=== PATIENT | male | born 1940 | race African-American/Black ===

== ENCOUNTER 2021-09-07 13:28 | Inpatient (IN) | payer MEDICARE, SELFPAY ==
[2021-09-07] VITALS (29 sets, daily range): BP systolic 102–172; BP diastolic 60–86; PULSE 75–133; RESP 11–20; TEMP 36.1; O2SAT 94–100
--- NOTE | ~2021-09-07 | XR_ITS ---
EXAMINATION: XR chest 1V portable DATE: 09/07/2021 17:48 INDICATION: Syncope. TECHNIQUE: A single frontal view of the chest was obtained. COMPARISON: None. FINDINGS: The chest demonstrates clear lungs without pneumonia, pleural effusion, or pneumothorax. Th e heart size is normal. IMPRESSION: 1. No acute cardiopulmonary disease. Reviewed, dictated and finalized at location A. TAL MARKETS SPECIALIST
--- NOTE | ~2021-09-07 | US_ITS ---
EXAMINATION: US carotid duplex BI DATE: 09/08/2021 16:24 INDICATION: Syncope. TECHNIQUE: Grayscale, color Doppler, and pulsed Doppler images of the cervical carotid arteries were obtained. The degree of vessel stenosis is placed in one of the following categories: normal, <50%, 5 0-69%, >=70% but less than near-occlusion, near-occlusion, or total occlusion. Note that percent sten osis relative to normal distal artery lumen diameter is indirectly measured from velocity measurement s as described by Rm, et al. Radiology 2003; 229:340-346. COMPARISON: None. FINDINGS: RIGHT: The right common carotid artery (CCA) peak systolic velocity (PSV) is 68 cm/s. The right internal car otid artery (ICA) PSV is 78 cm/s. The right ICA end-diastolic velocity (EDV) is 7 cm/s. The right ICA /CCA PSV ratio is 1.2. Grayscale and color Doppler images yield an estimate of <50% diameter reductio n from plaque in the ICA. There is antegrade flow in the right vertebral artery. LEFT: The left CCA PSV is 69 cm/s. The left ICA PSV is 79 cm/s. The left ICA EDV is 15 cm/s. The left ICA/C CA PSV ratio is 1.1. Grayscale and color Doppler images yield an estimate of <50% diameter reduction from plaque in the ICA. There is antegrade flow in the left vertebral artery. IMPRESSION: 1. <50% stenosis in the right internal carotid artery. 2. <50% stenosis in the left internal carotid artery. Reviewed, dictated and finalized at location A. ANDRA CONSULTANT
--- NOTE | ~2021-09-07 | MR_ITS ---
EXAMINATION: MR brain/brain stem wo/w con DATE: 09/08/2021 16:34 INDICATION: Syncope. TECHNIQUE: Magnetic resonance imaging (MRI) of the brain and brainstem was performed without and with 17 mL MultiHance intravenous contrast. Sequences included sagittal and axial T1-weighted FSE, axial diffusion-weighted FS EPI, axial T2*-weighted GRE, axial T2-weighted FLAIR Propeller, and axial T2-we ighted Propeller. Postcontrast sequences included axial and coronal T1-weighted FSE. Apparent diffusi on coefficient (ADC) maps were created. COMPARISON: Head CT 09/07/2021 FINDINGS: There is diffuse brain volume loss. There is a small old infarct in the left parietal lobe. There are scattered areas of nonspecific increased T2-weighted signal intensity in the cerebral whit e matter and azeem. There is no intracranial hemorrhage, acute infarction, or abnormal intracranial ma ss lesion. The ventricles are normal in size. There is mild mucosal thickening in the paranasal sinus es. The orbits are normal. There is a small right mastoid effusion. IMPRESSION: 1. Mild nonspecific cerebral white matter disease and pontine disease, which likely represents chroni c small vessel ischemic disease. 2. Small old infarct in the left parietal lobe. Reviewed, dictated and finalized at location A. LAY DIRECTOR IMPRESSION: 1. Mild nonspecific cerebral white matter disease and pontine disease, which samir jackson represents chronic small vessel ischemic disease. 2. Small old infarct in the left parietal lobe.
--- NOTE | ~2021-09-07 | CT_ITS ---
EXAMINATION: CT brain wo con DATE: 09/07/2021 18:20 INDICATION: Syncope. TECHNIQUE: Computed tomography (CT) of the head was performed without intravenous contrast. The mA wa s adjusted according to patient size. Iterative reconstruction technique was employed. The dose-lengt h product was 605.33 mGy-cm. COMPARISON: None FINDINGS: There is a small old infarct in left parietal lobe. There is an old lacunar infarct in righ t caudate nucleus. There is an old lacunar infarct in the azeem. There are scattered areas of low atte nuation in the cerebral white matter. There is no intracranial hemorrhage, acute infarction, or abnor mal intracranial mass lesion. The ventricles are normal in size. The orbits are normal. There is mild mucosal thickening in the paranasal sinuses. There is a trace right mastoid effusion. IMPRESSION: 1. 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 2. Mild nonspecific cerebral white matter disease, which likely represents chronic small vessel ische marianne disease. Reviewed, dictated and finalized at location A. PATIONAL HEALTH COORDINATOR IMPRESSION: 1. 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 2. Mild nonspecific cerebral white matter disease, which likely represents shredder operator stanton small vessel ischemic disease.
--- NOTE | 2021-09-07 17:35 | ECG_ITS ---
Measurements Intervals [place] Rate: 97 P: 79 OH: 274 QRS: 15 QRSD: 84 T: 48 QT: 374 QTc: 477 Interpretive Statements SINUS RHYTHM WITH FIRST DEGREE AV BLOCK VENTRICULAR PREMATURE COMPLEX BASELINE ARTIFACT- I, II, III, AVR, AVL, AVF, V1-V6 ABNORMAL ECG Electronically Signed On 09-07-2021 19:16:42 SENIOR ENVIRONMENTAL ENGINEER by Marvin Waldron D.O.
--- NOTE | 2021-09-07 17:35 | ED.SYNCOPE ---
HPI - Syncope General Chief Complaint: Syncope Stated Complaint: syncope- a flutter Time Seen by Provider: 09/07/21 17:34 Course Vital Signs Vital signs: Vital Signs Temperature 36.1 C L 09/07/21 13:31 Pulse Rate 107 H 09/07/21 13:31 Respiratory Rate 20 09/07/21 13:31 Blood Pressure 133/75 09/07/21 13:31 Pulse Oximetry 100 09/07/21 13:31 Temperature 36.1 C L 09/07/21 13:31 Pulse Rate 107 H 09/07/21 13:31 Respiratory Rate 20 09/07/21 13:31 Blood Pressure 133/75 09/07/21 13:31 Pulse Oximetry 100 09/07/21 13:31
--- NOTE | 2021-09-07 17:45 | ED.SYNCOPE ---
HPI - Syncope General Chief Complaint: Syncope Stated Complaint: syncope- a flutter Time Seen by Provider: 09/07/21 17:34 Source: patient and family Mode of arrival: EMS Limitations: dementia History of Present Illness HPI narrative: Patient is an 81-year-old male brought in by EMS seizure versus syncope at home. According to daughter patient was sitting down when he suddenly became unresponsive and started shaking lasted for approximately 1 to 2 minutes. Denies any urinary or bowel incontinence. No history of seizures. Daughter states that patient was recently discharged from [facility] yesterday after being admitted for 4 days due to abdominal pain, they discharged him and they do not know what is causing his stomach pain . Patient denies any headache, dizziness, chest pain, shortness of breath, nausea, vomiting, diarrhea, fever or chills. Review of Systems Review of Systems: All systems reviewed & are unremarkable except as noted in HPI and below Constitutional: Constitutional: Denies body ache(s), Denies chills, Denies excessive sweating, Denies fatigue, Denies fever(s), Denies headache(s), Denies lethargy, Denies malaise and Denies weight loss Eyes: Eyes: Denies blurry vision, Denies change in vision and Denies loss of vision ENT: Denies dizziness, Denies ear discharge, Denies headache(s), Denies lip swelling, Denies epistaxis, Denies nasal congestion, Denies neck pain, Denies throat swelling and Denies tongue swelling Cardiovascular: Cardiovascular: Denies chest pain, Denies chest pain at rest, Denies chest pain with activity, Denies diaphoresis, Denies rapid heart rate, Denies edema, Denies irregular heart rhythm, Denies lightheadedness, Denies palpitations, Denies dyspnea and Denies dyspnea on exertion Respiratory: Respiratory: Denies chest congestion, Denies cough, Denies hemoptysis, Denies dyspnea and Denies dyspnea on exertion Gastrointestinal: Gastrointestinal: Denies abdominal pain, Denies melena, Denies hematochezia, Denies diarrhea, Denies nausea, Denies vomiting and Denies hematemesis Musculoskeletal: Musculoskeletal: Denies abnormal gait, Denies deformity, Denies joint swelling, Denies limited range of motion, Denies neck pain and Denies numbness Neurologic: Denies Abnormal speech present, Denies abnormal gait, Denies confusion, Denies dizziness, Denies headache(s), Denies focal weakness, Denies loss of vision, Denies numbness, Denies Other visual disturbances, Denies Sensory deficit (Neuro) and Denies weakness Psychiatric: Psychiatric: Denies confusion, Denies depression, Denies auditory hallucinations, Denies homicidal ideation and Denies suicidal ideation Endocrine: Endocrine: Denies cold intolerance, Denies excessive sweating, Denies fatigue, Denies heat intolerance and Denies palpitations Hematologic/Lymphatic: Hematologic/Lymphatic: Denies easy bleeding and Denies easy bruising Allergic/Immunologic: Allergic/Immunologic: Denies lip swelling, Denies throat swelling and Denies tongue swelling PMFSH Comments Past medical history: Hypertension, diabetes, dementia Family history: Hypertension diabetes Social history: Non-smoker no EtOH use, lives at home with a 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 caretaker Exam Const: General: cooperative, healthy appearing, comfortable, no acute distress, well developed, alert and awake Orientation/consciousness: oriented to person, oriented to place and No confusion Limitations: no limitations Other: Not oriented to time, this is his baseline per daughter HENMT: Head: normal to inspection, normocephalic and atraumatic Ears: hearing grossly normal bilaterally, TM normal on the right and TM normal on the left General nose exam: Normal external nose present, Normal nares present and No nasal discharge present Face and sinus: normal facial exam Mouth: Yes Normal oral and palatal mucosa present, Yes lip normal, Yes tongue normal and Yes oropharynx normal Throat: posterior oropharynx normal, tonsils normal and uvula midline
[2021-09-07] MEDS: SODIUM CHLORIDE 0.9% IV 1,000 ML 999 ML IV CONT (18:00)
[2021-09-07 18:07] LABS: Basophils Absolute Auto 0.1 K/mm3 (0.0-0.1); Basophils Percent Auto 0.8 % (0.2-1.2); Eosinophils Absolute Auto 0.1 K/mm3 (0-0.3); Hematocrit 31.9 % (42.0-52.0); Hemoglobin 10.8 g/dL (14.0-18.0); Immature Granulocyte Absolute 0.07 K/mm3 (0.00-0.031); Immature Granulocyte Percent A 0.6 % (0-0.5); Lymphocytes Absolute Auto 2.51 K/mm3 (0.9-3.2); Lymphocytes Percent Auto 21.9 % (18.3-44.2); Mean Corpuscular HGB Conc 33.9 g/dl (32-36); Mean Corpuscular Hemoglobin 31.8 pg (26-34); Mean Corpuscular Volume 93.8 fl (80-100); Mean Platelet Volume 10.4 fl (7.4-10.4); Monocytes Absolute Auto 1.5 K/mm3 (0.1-0.6); Monocytes Percent Auto 12.9 % (2.6-8.5); Neutrophils Absolute Auto 7.2 K/mm3 (1.3-6.7); Neutrophils Percent Auto 62.8 % (45.5-73.1); Platelet Count Result 265 k/mm3 (150-375); Red Cell Distribution Width 13.5 % (11.5-14.5); White Blood Count 11.5 K/mm3 (4.5-10.0)
[2021-09-07 18:16] LABS: INR 1.1; Prothrombin Time 13.6 Seconds (11.1-14.7)
--- NOTE | 2021-09-07 18:16 | PC.NURSE ---
pt. to ct no ekg or accu check completed
[2021-09-07 18:17] LABS: Anion Gap 8 mmol/L (8-16); Blood Urea Nitrogen 23 mg/dL (9-20); Calcium 9.9 mg/dL (8.4-10.2); Carbon Dioxide 26 mmol/L (22-30); Chloride 101 mmol/L (98-107); Estimated CRCL calculation 52 ml/min; Estimated Glomerular Filt Rate > 60; Glucose 224 mg/dL (65-110); Partial Thromboplastin Time 22.8 SECONDS (22.3-36.8); Potassium 3.6 mmol/L (3.4-5.0); Sodium 135 mmol/L (137-145)
[2021-09-07 18:24] LABS: Glucose Point of Care 199 mg/dl (65-105)
[2021-09-07 18:29] LABS: NT Pro B Type Natriuretic Pept 666 pg/mL (5-100); Troponin I 0.034 ng/mL (0.000-0.034)
--- NOTE | 2021-09-07 18:49 | PC.NURSE ---
pt. asked x3 to urinate. pt. reports he cannot go.
[2021-09-07] MEDS: levETIRAcetam 500 MG TABLET PO (20:25)
--- NOTE | 2021-09-07 22:34 | PM.IMHP ---
H&P: HPI History of Present Illness Date/Time: 09/07/21 22:34 this is a 81-year-old male patient who is a very poor historian. He tells me that he lives with his family. The patient was brought into the ER via EMS for possible seizure versus syncope at home. According to the reports the patient was sitting down when he suddenly became unresponsive and started shaking for approximately 1-2 minutes. Patient denied any incontinence of bowel or bladder. However when I assessed the patient his pants smelled of urine and were wet. Patient was at [facility] and just discharged yesterday after being there for 4 days due to abdominal pain. No fever chills. Neurology has been consulted and the patient was given IV fluids and Keppra p.o.. His white count was 11.5. H&H is 10.8 and 31.9. Sodium was 135. Blood sugar was 199 and his BNP was 666. 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 Mild nonspecific cerebral white matter disease, which likely represents chronic small vessel ischemic disease. Chest x-ray was read as no acute cardiopulmonary disease. The patient is being admitted to observation status on the date of service of 09/07/2021. Chief Complaint: Possible seizure Review of Systems Review of Systems: All systems reviewed & are unremarkable except as noted in HPI and below Constitutional: Constitutional: Reports as per HPI and Reports no additional constitutional complaints Eyes: Eyes: Reports as per HPI and Reports no additional eye complaints ENT: Reports system reviewed and no additional complaints, except as documented and Reports Normal hearing present Cardiovascular: Cardiovascular: Reports no additional cardiovascular complaints Respiratory: Respiratory: Reports no additional respiratory complaints and Reports no additional respiratory complaints Gastrointestinal: Gastrointestinal: Reports as per HPI and Reports no additional gastrointestinal complaints Musculoskeletal: Musculoskeletal: Reports no additional musculoskeletal complaints Integumentary/Breasts: Skin/Breast: Reports system reviewed and no additional complaints, except as docu and Reports as per HPI Neurologic: Reports system reviewed and no additional complaints, except as documented, Reports as per HPI and Reports Normal hearing present Psychiatric: Psychiatric: Reports no additional psychiatric complaints and Reports as per HPI Endocrine: Endocrine: Reports no additional endocrine complaints Hematologic/Lymphatic: Hematologic/Lymphatic: Reports no additional hematologic/lymphatic complaints Allergic/Immunologic: Allergic/Immunologic: Reports no additional allergic/immunologic complaints COUNTS INCLUDE 234 BEDS AT THE [facility] Past Medical History Medical History (Updated 09/07/21 @ 23:17 by Diana Ulloa NP) BPH (benign prostatic hyperplasia) DM2 (diabetes mellitus, type 2) Hyperlipidemia Hypertension Surgical History Surgical History (Updated 09/07/21 @ 22:48 by Diana Ulloa NP) No pertinent past surgical history As per patient Family History Family History (Updated 09/07/21 @ 22:49 by Diana Ulloa NP) Unknown Unknown family medical history Social History Social History (Updated 09/07/21 @ 22:53 by Diana Ulloa NP) Social History: The patient is . He stated that he lives with family. Two daughters were listed in his contacts. The patient is listed as a full code. The patient stated that he smoked a long time ago. He stated that he worked for [employer]. He stated he drank a long time ago. Code status full code Smoking status: Former smoker Meds Home Medications and Allergies Home Medications Medication Instructions Recorded Confirmed Type amlodipine 10 mg PO DAILY 09/07/21 09/07/21 History atorvastatin 20 mg PO DAILY 09/07/21 09/07/21 History docusate sodium 100 mg PO DAILY 09/07/21 09/07/21 History insulin glargine [Lantus Solostar 25 unit SUBCUT DAILY 1
[2021-09-07 23:25] LABS: Add Urine Microscopic? YES; Appearance Urine Cloudy (Clear); Bacteria Urine Trace /hpf; Bilirubin Urine Negative (Negative); Blood Urine 3+ (Negative); Color Urine Yellow (Yellow); Glucose Urine UA Negative (Negative); Ketones Urine Negative (Negative); Leukocyte Esterase Ur Negative LEU/UL (Negative); Nitrate Urine Negative (Negative); Protein Urine Negative (Negative); RBC Urine >75 /hpf (0-2); Specific Grav Ur 1.011 (1.001-1.035); Urobilinogen Urine Negative mg/dL (<2.0); WBC Urine 0-3 /hpf
[2021-09-08] VITALS (14 sets, daily range): BP systolic 151–165; BP diastolic 66–74; PULSE 73–101; RESP 11–20; TEMP 36.6–37; O2SAT 97–100; BMI 25.7
--- NOTE | 2021-09-08 | ECHO_ITS ---
Patient Info Name: Van Brower Age: 81 years : 1940 Gender: Male Ht: 73 in Wt: 179 lbs BSA: 2.05 m2 HR: 87 bpm BP: 161 / 71 mmHg Technical Quality: Good Exam Date: 09/08/2021 10:28 AM Exam Location: [facility] Patient Status: Inpatient Admit Date: 09/07/2021 Staff Ordering Physician: Diana Ulloa NP Egg Trayer: Delia Vinson RDCS Attending Provider: Antoinette Hope NP Referring Physician: Laila VENEGAS; Exam Type: CA echo doppler color flow Study Info Indications - ELEVATED BNP Complete two-dimensional, color flow and Doppler transthoracic echocardiogram is performed. Summary 1. Complete two-dimensional, color flow and Doppler transthoracic echocardiogram is performed. 2. Left ventricular chamber dimension is normal. 3. Left ventricular systolic function is normal, estimated at 60-65%. 4. The left ventricular diastolic function is grade I diastolic dysfunction. 5. E/e' 8 is minimally elevated. 6. Global longitudinal strain is normal at -17.6%. 7. There is mild mitral valve regurgitation. 8. There is trace tricuspid valve regurgitation. 9. No pulmonary hypertension, estimated pulmonary arterial systolic pressure is 33 mmHg. Left Ventricle E/e' 8 is minimally elevated. Global longitudinal strain is normal at -17.6%. Left ventricular chamber dimension is normal. Left ventricular systolic function is normal, estimated at 60-65%. The left ventricular diastolic function is grade I diastolic dysfunction. Right Ventricle Right ventricular chamber dimension is normal. Right ventricular systolic function is normal. Left Atria Left atrial chamber dimension is normal. Right Atria Right atrial chamber dimension is normal. Aortic Valve The aortic valve is trileaflet. There is no aortic valve stenosis. There is no aortic valve regurgitation. Pulmonic Valve There is no pulmonic regurgitation. Mitral Valve There is no mitral valve stenosis. There is mild mitral valve regurgitation. Tricuspid Valve There is trace tricuspid valve regurgitation. No pulmonary hypertension, estimated pulmonary arterial systolic pressure is 33 mmHg. Pericardium/Pleural There is no pericardial effusion. Inferior Vena Cava Normal inferior vena cava with >50% collapse upon inspiration consistent with normal right atrial pressure, 5 mmHg. Aorta The aortic root size at the sinus of Valsalva is normal. Left Ventricular Outflow Tract Name Value Normal LVOT 2D LVOT Diameter 2.0 cm LVOT Doppler LVOT Peak Gradient 4 mmHg LVOT Mean Gradient 2 mmHg LVOT VTI 22 cm LVOT VTI/AV VTI Ratio 1.0 LVOT Stroke Volume 69 ml LVOT CO 5.8 l/min LVOT CI 2.8 l/min/m2 Pulmonic Valve Name Value Normal
--- NOTE | 2021-09-08 00:55 | ADMGEN ---
This patient, Van Brower, was admitted to [facility] Surg Room 306-01. Patient/family oriented to hospital policies and general routines including ID bracelet, bed and alarms, visiting hours, pain management, procedures, bathroom and other care routines, personal items, smoking policy, room service/diet, and visiting hours. Information on how to activate the Rapid Response Team has been discussed. Patient/Family are encouraged to report perceived risks to care and to ask questions if they do not understand what they are told or what they should do.
[2021-09-08 02:53] LABS: Glucose Point of Care 148 mg/dl (65-105)
[2021-09-08] MEDS: LACTATED RINGERS 1,000 ML 100 ML IV CONT ×3 (06:11→22:33)
[2021-09-08 07:01] LABS: Glucose Point of Care 136 mg/dl (65-105)
[2021-09-08 07:26] LABS: Basophils Absolute Auto 0.1 K/mm3 (0.0-0.1); Eosinophils Absolute Auto 0.2 K/mm3 (0-0.3); Eosinophils Percent Auto 2.4 % (0-4.4); Hematocrit 27.4 % (42.0-52.0); Hemoglobin 9.2 g/dL (14.0-18.0); Immature Granulocyte Absolute 0.03 K/mm3 (0.00-0.031); Immature Granulocyte Percent A 0.4 % (0-0.5); Lymphocytes Absolute Auto 2.02 K/mm3 (0.9-3.2); Mean Corpuscular HGB Conc 33.6 g/dl (32-36); Mean Corpuscular Hemoglobin 31.5 pg (26-34); Mean Corpuscular Volume 93.8 fl (80-100); Mean Platelet Volume 9.9 fl (7.4-10.4); Monocytes Percent Auto 13.5 % (2.6-8.5); Neutrophils Percent Auto 54.7 % (45.5-73.1); Platelet Count Result 290 k/mm3 (150-375); Red Blood Count 2.92 M/mm3 (4.6-6.20); Red Cell Distribution Width 13.5 % (11.5-14.5); White Blood Count 7.2 K/mm3 (4.5-10.0)
[2021-09-08 07:46] LABS: Lactic Acid Reflex 0.8 mmol/L (0.7-2.1)
[2021-09-08 08:16] LABS: Alanine Aminotransferase 73 U/L (4-50); Albumin Level 3.7 g/dL (3.5-5.1); Alkaline Phosphatase 87 U/L (38-126); Anion Gap 7 mmol/L (8-16); Aspartate Amino Transferase 63 U/L (17-59); Bilirubin,Total 0.5 mg/dL (0.2-1.3); Blood Urea Nitrogen 15 mg/dL (9-20); Calcium 8.9 mg/dL (8.4-10.2); Carbon Dioxide 25 mmol/L (22-30); Chloride 104 mmol/L (98-107); Estimated CRCL calculation 70 ml/min; Estimated Glomerular Filt Rate > 60; Glucose 155 mg/dL (65-110); Lactate Dehydrogenase 365 U/L (313-618); Magnesium 1.4 mg/dL (1.6-2.3); Potassium 3.2 mmol/L (3.4-5.0); Sodium 136 mmol/L (137-145)
[2021-09-08] MEDS: levETIRAcetam 500MG/NACL 100ML 500 MG/100 ML BAG 400 MG IVPB ×2 (08:35→22:33)
--- NOTE | 2021-09-08 09:25 | PM.IMPN ---
Progress Note: A&P Assessment and Plan (1) New onset seizure: Code(s): R56.9 - Unspecified convulsions Status: Acute Assessment and Plan: Neurology has been consulted. patient was started on p.o. Keppra which I will change to IV Keppra since he is now NPO. An EEG has been ordered. MRI of the brain has been ordered. echo done and results WNL & noted above NPO for testing (2) Anemia: Code(s): D64.9 - Anemia, unspecified Status: Acute Assessment and Plan: Unknown if it is chronic or new. H/H = 10.8/31.9 at admission Patient was recently at [facility] discharged 09/06. We will attempt to get records from [facility]. H/H 9.2/27.4 today. No IVFs. (3) Hypertension: Code(s): I10 - Essential (primary) hypertension Status: Chronic Assessment and Plan: Since the patient is NPO , continue p.r.n. hydralazine BNP elevated at 666, but no s/s of CHF. ECHO results wnl. Ordered daily weights and strict I/Os. No edema, no SOB, no wheezing, CXR on 09/07 showed chest demonstrates clear lungs without pneumonia, pleural effusion, or pneumothorax. The heart size is normal. No acute cardiopulmonary disease. Monitor VS. (4) Hyperlipidemia: Code(s): E78.5 - Hyperlipidemia, unspecified Status: Chronic Assessment and Plan: Continue with atorvastatin (5) DM2 (diabetes mellitus, type 2): Code(s): E11.9 - Type 2 diabetes mellitus without complications Status: Chronic Assessment and Plan: Accu-Cheks every 6 hours and check A1c. Sliding scale insulin. Hold the Lantus and metformin glucose levels today are 173, 136 (6) BPH (benign prostatic hyperplasia): Code(s): N40.0 - Benign prostatic hyperplasia without lower urinary tract symptoms Status: Chronic Assessment and Plan: Continue with tamsulosin. (7) Tachycardia: Code(s): R00.0 - Tachycardia, unspecified Status: Acute Assessment and Plan: HR 83-98 on vital signs, then up to 160-180 with PT session ordered IVFs 100ml.hr to continue ordered 4 gm Mag IV now with daily 400mg PO to continue EKG for now no chest pain or SOB complaints continue Cardiac Telemetry monitoring Subjective Date/time seen: 09/08/21 09:25 Van was a pleasant gentleman to see today. His grand-daughter was present at his bedside. He was alert and oriented at times. Thought she was a niece but then corrected himself and did get her name correct. Knew it was 2020, but thought it was August. His right arm seemed to be contracted at times, involuntarily, and he also complained to the nursing staff that his legs were having some cramping in them as well. Nursing staff is currently working on replacing his IV, so I have ordered PO magnesium to replace the low 1.4 mag level. Appreciate Neurologist Dr. Holder's consultation and recommendations - as he was consulted. Awaiting the MRI brain, EEG results, and US carotid results. Continue Qshift neurochecks and fall precautions. His echo showed: Left ventricular chamber dimension is normal.EF 60-65%. left ventricular diastolic function is grade I diastolic dysfunction.mild mitral valve regurgitation.trace tricuspid valve regurgitation.No pulmonary hypertension, estimated pulmonary arterial systolic pressure is 33 mmHg.no aortic valve stenosis.no aortic valve regurgitation. no pulmonic regurgitation. no mitral valve stenosis.mild mitral valve regurgitation.trace tricuspid valve regurgitation. no pericardial effusion. Review of Systems Review of Systems: All systems reviewed & are unremarkable except as noted in HPI and below Constitutional: Constitutional: Reports as per HPI, Reports no additional constitutional complaints, Denies headache(s), Reports lethargy and Reports weakness Eyes: Eyes: Reports as per HPI, Reports no additional eye complaints, Denies blurry vision, Denies change in vision, Denies loss of vision and Reports photopho
--- NOTE | 2021-09-08 09:26 | WPDNEURCNPN ---
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 in addition to history of seizure and so continue anticonvulsants in therapeutic dosage and follow-up in the office once medically he is taken care Consult date: 09/08/21 HPI: Van Brower is a 81 year old maleAdmitted to the hospital through the emergency room where he was brought by EMS with the possibility of seizure versus syncope at home reportedly he was sitting down when he suddenly became unresponsive and started shaking for approximately 1 to 2 minutes he did not become incontinent of bowel or bladder but at the time of initial evaluation he smelled of urine patient initially was [facility] and just discharged yesterday after being there for 4 days due to abdominal pain initial evaluation revealed him to have CBC was 11.5 WBCs hemoglobin 10.8 and a blood sugar of 199 with BNP of [address] scan of the head documented 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 BPH 2. Type 2 diabetes mellitus 3. Hypertension 4. Hyperlipidemia. In the emergency room after the initial consultation he was started on Keppra, medication were continued as such. Review of Systems Review of Systems: All systems reviewed & are unremarkable except as noted in HPI and below PMFSH Past Medical History Medical History BPH (benign prostatic hyperplasia) DM2 (diabetes mellitus, type 2) Hyperlipidemia Hypertension Surgical History Surgical History No pertinent past surgical history As per patient Family History Family History Unknown Unknown family medical history Social History Social History Social History: The patient is . He stated that he lives with family. Two daughters were listed in his contacts. The patient is listed as a full code. The patient stated that he smoked a long time ago. He stated that he worked for [employer] [place]. He stated he drank a long time ago. Code status full code Smoking status: Unknown if ever smoked Spiritual care concerns: No Meds Home Medications and Allergies Home Medications Medication Instructions Recorded Confirmed Type amlodipine 10 mg PO DAILY 09/07/21 09/07/21 History atorvastatin 20 mg PO DAILY 09/07/21 09/07/21 History docusate sodium 100 mg PO DAILY 09/07/21 09/07/21 History insulin glargine [Lantus Solostar 25 unit SUBCUT DAILY 09/07/21 09/07/21 History U-100 Insulin] lisinopril 40 mg PO DAILY 09/07/21 09/07/21 History metformin 500 mg PO BID 09/07/21 09/07/21 History metoprolol tartrate 50 mg PO BID 09/07/21 09/07/21 History polyethylene glycol 3350 17 g PO DAILY PRN 09/07/21 09/07/21 History sitagliptin [Januvia] 100 mg PO DAILY 09/07/21 09/07/21 History tamsulosin 0.4 mg PO DAILY 09/07/21 09/07/21 History Allergies Allergy/AdvReac Type Severity Reaction Status Date / Time No Known Allergies Allergy Verified 09/07/21 20:08 Vital Signs Vital Signs - 24 hr 09/07/21 13:31 09/07/21 18:46 09/07/21 18:48 Temperature 36.1 C L Pulse Rate 107 H 97 93 Respiratory Rate 20 Blood Pressure 133/75 158/70 H Pulse Oximetry 100 09/07/21 18:49 09/07/21 18:51 09/07/21 20:05 Temperature Pulse Rate 88 133 H 86 Respiratory Rate 15 Blood Pressure 144/66 H 102/60 170/74 H Pulse Oximetry 100 09/07/21 20:15 09/07/21 20:16 09/07/21 20:30 Temperature Pulse Rate 79 75 79 Respiratory Rate 15 15 15 Blood Pressure 152/71 H 152/71 H Pulse Oximetry 100 100 09/07/21 20:46 09/07/21 20:47 09/07/21 21:12 Temperature P
[2021-09-08 12:12] LABS: Hemoglobin A1C 5.7 % (<5.7)
[2021-09-08 12:16] LABS: Glucose Point of Care 173 mg/dl (65-105)
--- NOTE | 2021-09-08 14:26 | ECG_ITS ---
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
[2021-09-08] MEDS: MAGNESIUM SULF 4 GM/WATER100ML 4 GM/100 ML BAG IVPB (14:57)
[2021-09-08] MEDS: MAGNESIUM OXIDE 400 MG TABLET PO (14:58)
[2021-09-08] MEDS: POTASSIUM CHLORIDE 20 MEQ PACKET (FOR LIQUID) 40 MEQ PO (17:13)
[2021-09-08 17:26] LABS: Glucose Point of Care 152 mg/dl (65-105)
[2021-09-08 17:34] LABS: Glucose Point of Care 152 mg/dl (65-105)
[2021-09-09] VITALS (9 sets, daily range): BP systolic 122–162; BP diastolic 64–77; PULSE 89–155; RESP 18–20; TEMP 36.2–37.2; O2SAT 98–100
[2021-09-09 03:30] LABS: Glucose Point of Care 132 mg/dl (65-105)
[2021-09-09 04:54] LABS: Glucose Point of Care 154 mg/dl (65-105)
[2021-09-09] MEDS: METOPROLOL TARTRATE INJ 5 MG/5 ML VIAL IV PUSH (05:04)
--- NOTE | 2021-09-09 05:33 | P.PNCROSS_ITS ---
Event Note Event Note Event Note: 09/09/2021 around 04:40 The patient fluid from sinus rhythm to AFib RVR on telemetry. Nursing staff called to notify me the patient's heart rates were 170s. Systolic blood pressures were remaining around 120. The patient is evidently NPO due to altered mental status and seizure. The patient has subsequent not been receiving his metoprolol. He was recently diagnosed with AFib during a prior hospitalization at [place]. The patient subsequently went into AFib RVR due to missed doses of his metoprolol. A given or for 5 mg IV Lopressor x1. Approximately 20 minutes later patient's heart rate had improved to between 90- 110. Patient's blood pressures were stable. I have placed the patient on IV Lopressor 5 mg Q 6 hours scheduled while NPO. Will hold for heart rates less than 50 or systolic blood pressures less than 100. Repeat potassium and magnesium levels are already ordered for a.m. labs.
[2021-09-09 06:26] LABS: Hematocrit 27.6 % (42.0-52.0); Hemoglobin 9.6 g/dL (14.0-18.0); Mean Corpuscular HGB Conc 34.8 g/dl (32-36); Mean Corpuscular Hemoglobin 31.1 pg (26-34); Mean Corpuscular Volume 89.3 fl (80-100); Mean Platelet Volume 9.7 fl (7.4-10.4); Platelet Count Result 320 k/mm3 (150-375); Red Blood Count 3.09 M/mm3 (4.6-6.20); Red Cell Distribution Width 12.9 % (11.5-14.5); White Blood Count 7.2 K/mm3 (4.5-10.0)
[2021-09-09 06:38] LABS: Anion Gap 9 mmol/L (8-16); Blood Urea Nitrogen 10 mg/dL (9-20); Calcium 9.3 mg/dL (8.4-10.2); Carbon Dioxide 24 mmol/L (22-30); Chloride 105 mmol/L (98-107); Estimated CRCL calculation 57 ml/min; Estimated Glomerular Filt Rate > 60; Glucose 165 mg/dL (65-110); Magnesium 1.6 mg/dL (1.6-2.3); Phosphorus 2.6 mg/dL (2.5-4.5); Potassium 3.4 mmol/L (3.4-5.0); Sodium 138 mmol/L (137-145)
[2021-09-09 06:44] LABS: NT Pro B Type Natriuretic Pept 460 pg/mL (5-100)
[2021-09-09 08:18] LABS: Glucose Point of Care 151 mg/dl (65-105)
[2021-09-09] MEDS: levETIRAcetam 500MG/NACL 100ML 500 MG/100 ML BAG 400 MG IVPB (08:50)
--- NOTE | 2021-09-09 09:32 | PM.IMPN ---
Progress Note: A&P Assessment and Plan (1) New onset seizure: Code(s): R56.9 - Unspecified convulsions Status: Acute Assessment and Plan: Neurology has been consulted. patient was started on p.o. Keppra which was changed to to IV Keppra since he is now NPO. Follow-up EEG MRI of the brain shows old infarct. echo done and results WNL Will get swallow evaluation (2) Anemia: Code(s): D64.9 - Anemia, unspecified Status: Acute Assessment and Plan: Continue to monitor pending records transfuse if hemoglobin below 7 (3) Hypertension: Code(s): I10 - Essential (primary) hypertension Status: Chronic Assessment and Plan: Resume home medication Once able to tolerate diet (4) Hyperlipidemia: Code(s): E78.5 - Hyperlipidemia, unspecified Status: Chronic Assessment and Plan: Continue with atorvastatin (5) DM2 (diabetes mellitus, type 2): Code(s): E11.9 - Type 2 diabetes mellitus without complications Status: Chronic Assessment and Plan: Accu-Cheks every 6 hours and check A1c. Sliding scale insulin. Hold the Lantus and metformin glucose levels today are 173, 136 (6) BPH (benign prostatic hyperplasia): Code(s): N40.0 - Benign prostatic hyperplasia without lower urinary tract symptoms Status: Chronic Assessment and Plan: Continue with tamsulosin. (7) Tachycardia: Code(s): R00.0 - Tachycardia, unspecified Status: Acute Assessment and Plan: Secondary to AFib with RVR patient currently not on anticoagulation pending old records Subjective Date/time seen: 09/09/21 09:32 Interval history: Patient seen and examined Patient still have intermittent episodes of confusion hypertension uncontrolled overnight patient had episodes of AFib with RVR treated with IV Lopressor pending improvement in oral intake will start metoprolol once patient is able to tolerate oral diet and DC IV Lopressor Constipation has been treated for seizure by Neurology which Keppra Patient has history of known AFib currently is not on anticoagulation patient also has anemia pending records from [facility] Patient denies fever headache chest pain shortness of breath I am seeing the patient for altered mental status Exam Narrative: Alert but have intermittent confusion Chest no wheeze crackles Abdomen nontender nondistended CVS S1 + S2 Moves all extremities Lower extremity negative edema Objective Data Vital Signs Vital Signs: Vital Signs - 24 hr 09/08/21 12:00 09/08/21 15:16 09/08/21 16:00 Temperature 97.8 F Pulse Rate 88 94 87 Respiratory Rate 14 Blood Pressure 151/70 H Pulse Oximetry 98 09/08/21 21:52 09/09/21 04:00 09/09/21 05:04 Temperature 98.6 F Pulse Rate 101 H 95 155 H Respiratory Rate 18 Blood Pressure 163/74 H Pulse Oximetry 99 09/09/21 06:00 Temperature 98.1 F Pulse Rate 95 Respiratory Rate 18 Blood Pressure 122/64 Pulse Oximetry 98 Intake/Output Intake/Output: Intake & Output 09/06/21 09/07/21 09/08/21 09/09/21 23:59 23:59 23:59 23:59 Intake Total 3200 750 Output Total 2000 750 Balance 1200 0 Meds/Results Medications: Active Medications Generic Name Dose Route Start Last Admin Trade Name Freq PRN Reason Stop Dose Admin Amlodipine Besylate 10 mg 09/10/21 09:00 Amlodipine Besylate 5 Mg Tablet PO DAILY [facility] Atorvastatin Calcium 20 mg 09/10/21 09:00 Atorvastatin 20 Mg Tablet PO DAILY [facility] Dextrose 12.5 gm 09/07/21 23:08 Dextrose 50% 25 Gm/50 Ml Syringe IV PUSH PRN PRN Hypoglycemia Protocol Docusate Sodium 100 mg 09/10/21 09:00 Docusate Sodium 100 Mg Capsule PO DAILY [facility] Glucagon 1 mg 09/07/21 23:08 Glucagon For Inj 1 Mg Vial IM PRN PRN Hypoglycemia Protocol Glucose 15 gm 09/07/21 23:08 Glucose Oral Gel 15 Gm Of Glucse In 37.5 Gm Tube PO PRN PRN
--- NOTE | 2021-09-09 09:40 | ECG_ITS ---
Measurements Intervals [place] Rate: 87 P: 38 CO: 242 QRS: 25 QRSD: 87 T: 31 QT: 354 QTc: 426 Interpretive Statements SINUS RHYTHM WITH FIRST DEGREE AV BLOCK ATRIAL PREMATURE COMPLEX ABNORMAL ECG Electronically Signed On 09-09-2021 12:30:44 STUDY LEAD by Marvin Waldron D.O.
--- NOTE | 2021-09-09 11:55 | WPDNEUROPN ---
Progress Note: A&P Additional Plan stable continue the anticonvulsants as such change to p.o. MRI of the brain is abnormal with the possibility of left hemispheric focal will need to continue on the convulse regularly will follow in the office in 6 months Time Spent With Patient Time with patient: less than 15 minutes Subjective Date/time seen: 09/09/21 11:[address] scan as mentioned before in addition to history of seizures has remained stable in the hospital over the last 24 hours has not had any seizure recurrence Review of Systems Review of Systems: All systems reviewed & are unremarkable except as noted in HPI and below Exam Const: General: cooperative, comfortable and no acute distress Nutritional Appearance: average body habitus Orientation/consciousness: oriented to person and oriented to place HENMT: Head: normal to inspection and normocephalic Ears: hearing grossly normal bilaterally General nose exam: Normal external nose present Face and sinus: normal facial exam Mouth: Yes Normal oral and palatal mucosa present Eyes: General: appearance normal, both eyes and all related structures Neck: Neck: full ROM Resp: Effort & Inspection: able to speak in complete sentences Neuro: General: oriented to person and oriented to place Cranial nerves: Yes CN's II-XII intact bilaterally Cognition (Neuro): normal cognition Gait exam (Neuro): Unable to assess gait Sensory Exam: Sensory deficit (Neuro) Coordination: [id number] test normal Psych: Speech and movement: Normal speech and movement present Affect: normal affect Attitude: cooperative Thought content: Yes Normal thought content present Insight: Fair insight present (Psych) Judgement: Fair judgement present (Psych) Objective Data Vital Signs Vital Signs: Vital Signs - 24 hr 09/08/21 12:00 09/08/21 15:16 09/08/21 16:00 Temperature 36.6 C Pulse Rate 88 94 87 Respiratory Rate 14 Blood Pressure 151/70 H Pulse Oximetry 98 09/08/21 21:52 09/09/21 04:00 09/09/21 05:04 Temperature 37.0 C Pulse Rate 101 H 95 155 H Respiratory Rate 18 Blood Pressure 163/74 H Pulse Oximetry 99 09/09/21 06:00 09/09/21 09:45 Temperature 36.7 C Pulse Rate 95 98 Respiratory Rate 18 Blood Pressure 122/64 Pulse Oximetry 98 Intake/Output Intake/Output: Intake & Output 09/06/21 09/07/21 09/08/21 09/09/21 23:59 23:59 23:59 23:59 Intake Total 3200 850 Output Total 2000 750 Balance 1200 100 Meds/Results Medications: Active Medications Generic Name Dose Route Start Last Admin Trade Name Freq PRN Reason Stop Dose Admin Amlodipine Besylate 10 mg 09/09/21 09:00 Amlodipine Besylate 5 Mg Tablet PO DAILY [facility] Atorvastatin Calcium 20 mg 09/09/21 09:00 Atorvastatin 20 Mg Tablet PO DAILY [facility] Dextrose 12.5 gm 09/07/21 23:08 Dextrose 50% 25 Gm/50 Ml Syringe IV PUSH PRN PRN Hypoglycemia Protocol Docusate Sodium 100 mg 09/09/21 09:00 Docusate Sodium 100 Mg Capsule PO DAILY [facility] Glucagon 1 mg 09/07/21 23:08 Glucagon For Inj 1 Mg Vial IM PRN PRN Hypoglycemia Protocol Glucose 15 gm 09/07/21 23:08 Glucose Oral Gel 15 Gm Of Glucse In 37.5 Gm Tube PO PRN PRN Hypoglycemia Protocol Hydralazine HCl 10 mg 09/07/21 23:18 Hydralazine Hcl 20 Mg/Ml Vial IV PUSH Q8H PRN Blood Pressure - High Lactated Ringer's 1,000 mls @ 100 mls/hr 09/07/21 19:05 09/08/21 22:33 Lr - Lactated Ringers Iv IV CONT 100 mls/hr .Q10H [facility] Administration Dextrose 1,000 mls @ 100 mls/hr 09/07/21 23:08 Dextrose 5% 1,000 Ml IVPB PRN PRN Hypoglycemia Protocol Levetiracetam 500 mg in 100 mls @ 400 mls/hr 09/08/21 09:00 09/09/21 09:10 Keppra Iv IVPB Infused Q12HR [facility] Infusion Insulin Aspart 2 - 5 units 09/07/21 23:10 09/09/21 10:38 Insulin Aspart (*Bkc) 100 Units/Ml SUB-Q Not Given Q6H [facility] Pro
[2021-09-09 12:03] LABS: Glucose Point of Care 148 mg/dl (65-105)
[2021-09-09] MEDS: TAMSULOSIN HCL 0.4 MG CAPSULE PO (12:36)
[2021-09-09] MEDS: ATORVASTATIN 20 MG TABLET PO (12:36)
[2021-09-09] MEDS: amLODIPine BESYLATE 5 MG TABLET 10 MG PO (12:37)
[2021-09-09] MEDS: DOCUSATE SODIUM 100 MG CAPSULE PO (12:38)
--- NOTE | 2021-09-09 13:41 | PCSTNOTE ---
Please refer to the Bedside Swallow Evaluation in the EMR. Please note, silent aspiration cannot be ruled out at bedside.
--- NOTE | 2021-09-09 15:30 | PM.CNCAR ---
Assessment and Plan Assessment and plan (1) Paroxysmal atrial fibrillation with rapid ventricular response: Code(s): I48.0 - Paroxysmal atrial fibrillation Status: Acute Assessment and Plan: paroxysmal atrial fibrillation with rapid ventricular response possible intermittent atrial flutter with RVR as well. Currently sinus rhythm on telemetry. Patient relatively asymptomatic. CHADS2 Vasc score 6. Patient at high risk for recurrent stroke. Systemic anticoagulation would be advised for stroke risk reduction, however, given patient's presentation with concern for new onset seizures would prefer clearance from Neurology in this regard. Candidacy somewhat questionable, fall risk needs to be assessed. PT/OT. Balance of stroke prevention and bleeding risk. Eliquis 5 mg b.i.d. if able to obtain through insurance and if okay with Neurology. Increase metoprolol to 75 mg twice daily. patient indicated he wished to follow up with me as an outpatient. Will set that up as appropriate. Continue telemetry. He is not in decompensated heart failure. (2) Hypertension associated with type 2 diabetes mellitus: Code(s): E11.59 - Type 2 diabetes mellitus with other circulatory complications; I15.2 - Hypertension secondary to endocrine disorders Status: Acute Assessment and Plan: Stable albeit hypertensive as he had been off antihypertensives as he was NPO. He has now passed a swallow evaluation oral medications have been resumed. Resume lisinopril. (3) Anemia: Code(s): D64.9 - Anemia, unspecified Status: Acute Assessment and Plan: Fairly stable, follow H&H. (4) Mixed hyperlipidemia due to type 2 diabetes mellitus: Code(s): E11.69 - Type 2 diabetes mellitus with other specified complication; E78.2 - Mixed hyperlipidemia Status: Acute Assessment and Plan: Continue atorvastatin, goal LDL less than 70 given radiographic evidence of prior CVA. (5) History of CVA (cerebrovascular accident): Code(s): Z86.73 - Personal history of transient ischemic attack (TIA), and cerebral infarction without residual deficits Status: Acute Assessment and Plan: No acute finding, Possible he has been having intermittent asymptomatic atrial fibrillation as contribution to old left parietal lobe infarction. (6) DM2 (diabetes mellitus, type 2): Code(s): E11.9 - Type 2 diabetes mellitus without complications Status: Chronic Assessment and Plan: management per primary service. (7) New onset seizure: Code(s): R56.9 - Unspecified convulsions Status: Acute Assessment and Plan: Management per Neurology. Continue Keppra per their recommendations. History of Present Illness History of Present Illness Consult date/time: Date of service: 09/09/21 15:30 Cardiology consultation at the request of Dr. Lawler of the [facility] service for opinion regarding atrial fibrillation with rapid ventricular response. Requesting physician: Willy Lawler M.A., MD Consult reason: atrial fibrillation Reason For Visit: new onset seizure Narrative: Patient is a pleasant 81-year-old gentleman who was admitted on September 07 for probable seizure reported he suddenly became unresponsive with several minutes of shaking with evidence of urinary incontinence. Patient was just discharged from [facility] reportedly for abdominal pain prior to this admission. Keppra was initiated after neurology consultation. His BNP was mildly elevated at 666. 2D echocardiogram was obtained as result with revealed preserved LV systolic function. Brain MRI revealed small left parietal lobe infarction. He is mildly confused but does answer Most my questions appropriately. he denies prior knowledge of atrial fibrillation or other cardiac problems. Denies history of heart attack, CHF or prior known stroke. Patient apparently pulled out his IV earlier today. He was
[2021-09-09 17:37] LABS: Glucose Point of Care 189 mg/dl (65-105)
[2021-09-09] MEDS: levETIRAcetam 500 MG TABLET PO (21:30)
[2021-09-09] MEDS: METOPROLOL TARTRATE 25 MG TABLET 75 MG PO (21:39)
[2021-09-09] MEDS: APIXABAN 5 MG TABLET PO (21:40)
[2021-09-09] MEDS: INSULIN ASPART (*BKC) 100 UNITS/ML SUB-Q (23:12)
[2021-09-09 23:13] LABS: Glucose Point of Care 226 mg/dl (65-105)
[2021-09-10] VITALS (7 sets, daily range): BP systolic 111–171; BP diastolic 55–88; PULSE 58–97; RESP 16–18; TEMP 35.8–36.7; O2SAT 99–100
[2021-09-10 05:16] LABS: Glucose Point of Care 202 mg/dl (65-105)
[2021-09-10 06:26] LABS: Hematocrit 29.1 % (42.0-52.0); Hemoglobin 10.2 g/dL (14.0-18.0); Mean Corpuscular HGB Conc 35.1 g/dl (32-36); Mean Corpuscular Hemoglobin 32.2 pg (26-34); Mean Corpuscular Volume 91.8 fl (80-100); Mean Platelet Volume 9.9 fl (7.4-10.4); Platelet Count Result 325 k/mm3 (150-375); Red Blood Count 3.17 M/mm3 (4.6-6.20); Red Cell Distribution Width 13.2 % (11.5-14.5); White Blood Count 7.1 K/mm3 (4.5-10.0)
[2021-09-10 06:31] LABS: Anion Gap 7 mmol/L (8-16); Blood Urea Nitrogen 10 mg/dL (9-20); Calcium 9.3 mg/dL (8.4-10.2); Carbon Dioxide 27 mmol/L (22-30); Chloride 101 mmol/L (98-107); Estimated CRCL calculation 70 ml/min; Estimated Glomerular Filt Rate > 60; Glucose 219 mg/dL (65-110); Magnesium 1.3 mg/dL (1.6-2.3); Potassium 3.2 mmol/L (3.4-5.0); Sodium 135 mmol/L (137-145)
[2021-09-10 06:36] LABS: NT Pro B Type Natriuretic Pept 396 pg/mL (5-100)
[2021-09-10] MEDS: METOPROLOL TARTRATE 25 MG TABLET 75 MG PO ×2 (08:57→20:34)
[2021-09-10] MEDS: DOCUSATE SODIUM 100 MG CAPSULE PO (08:57)
[2021-09-10] MEDS: amLODIPine BESYLATE 5 MG TABLET 10 MG PO (08:57)
[2021-09-10] MEDS: APIXABAN 5 MG TABLET PO ×2 (08:58→20:34)
[2021-09-10] MEDS: levETIRAcetam 500 MG TABLET PO ×2 (08:58→20:33)
[2021-09-10] MEDS: TAMSULOSIN HCL 0.4 MG CAPSULE PO (08:58)
[2021-09-10] MEDS: INSULIN GLARGINE (*BKC) 100 UNITS/ML 25 UNITS SUB-Q (08:58)
[2021-09-10] MEDS: ATORVASTATIN 20 MG TABLET PO (08:58)
[2021-09-10] MEDS: MAGNESIUM OXIDE 400 MG TABLET PO ×2 (08:58→17:17)
[2021-09-10 09:15] LABS: Glucose Point of Care 227 mg/dl (65-105)
[2021-09-10] MEDS: POTASSIUM CHLORIDE 20 MEQ PACKET (FOR LIQUID) 40 MEQ PO (09:37)
[2021-09-10] MEDS: INSULIN ASPART (*BKC) 100 UNITS/ML SUB-Q ×3 (09:39→20:40)
[2021-09-10] MEDS: MAGNESIUM SULF 4 GM/WATER100ML 4 GM/100 ML BAG IVPB (10:13)
--- NOTE | 2021-09-10 11:45 | PM.IMPN ---
Progress Note: A&P Assessment and Plan (1) New onset seizure: Code(s): R56.9 - Unspecified convulsions Status: Acute Assessment and Plan: Neurology has been consulted. patient was started on p.o. Keppra , changed to IV Keppra when he was NPO, now Keppra PO again . Follow-up EEG MRI of the brain shows old infarct. echo done and results WNL passed swallow evaluation Management per Neurology. Continue Keppra per their recommendations. F/U with Neuro in 6 months. (2) Anemia: Code(s): D64.9 - Anemia, unspecified Status: Acute Assessment and Plan: Continue to monitor pending records transfuse if hemoglobin below 7 Fairly stable, follow H&H. H/H = 10.2 /29.1 (3) Hypertension: Code(s): I10 - Essential (primary) hypertension Status: Chronic Assessment and Plan: Resume metoprolol. Still holding lisinopril Appreciate Certification Officer evaluation and treating. (4) Hyperlipidemia: Code(s): E78.5 - Hyperlipidemia, unspecified Status: Chronic Assessment and Plan: Continue with atorvastatin (5) DM2 (diabetes mellitus, type 2): Code(s): E11.9 - Type 2 diabetes mellitus without complications Status: Chronic Assessment and Plan: Accu-Cheks every 6 hours and check A1c. Sliding scale insulin. Hold the Lantus at this time. Until dietary supplements have started. Yesterday 1st day of meals/eating. glucose level today are 219 Restarted his Metformin today. F/U with PCP (6) BPH (benign prostatic hyperplasia): Code(s): N40.0 - Benign prostatic hyperplasia without lower urinary tract symptoms Status: Chronic Assessment and Plan: Continue with tamsulosin. (7) Tachycardia: Code(s): R00.0 - Tachycardia, unspecified Status: Acute Assessment and Plan: Secondary to AFib with RVR patient currently not on anticoagulation pending old records Low electrolytes: K was 3.2 today, added daily low dose K. His mag was 1.3, added IV Mag and daily PO mag. to replenish. Certification Officer Dr. Raymundo started patient on Metoprolol, as he was having intermittent episodes of HTN with his confusion. VS controlled today with HR 65 and BP 113/54 to 125/66. He has known AFib but not on anticoagulation, but also history of anemia. H/H today 10.2/29.1 stable. Denies constipation. IMPROVED - RESOLVED. HR 65 today. (8) Paroxysmal atrial fibrillation with rapid ventricular response: Code(s): I48.0 - Paroxysmal atrial fibrillation Status: Acute Assessment and Plan: paroxysmal atrial fibrillation with rapid ventricular response possible intermittent atrial flutter with RVR as well. Currently sinus rhythm on telemetry. Patient relatively asymptomatic. CHADS2 Vasc score 6. Patient at high risk for recurrent stroke. Systemic anticoagulation would be advised for stroke risk reduction, however, given patient's presentation with concern for new onset seizures would prefer clearance from Neurology in this regard. Candidacy somewhat questionable, fall risk needs to be assessed. PT/OT. Balance of stroke prevention and bleeding risk. Eliquis 5 mg b.i.d. if able to obtain through insurance and if okay with Neurology. Increase metoprolol to 75 mg twice daily. patient indicated he wished to follow up withCardiologist as an outpatient. Continue telemetry. He is not in decompensated heart failure. Low electrolytes: K was 3.2 today, added daily low dose K. His mag was 1.3, added IV Mag and daily PO mag. to replenish. Certification Officer Dr. Raymundo started patient on Metoprolol, as he was having intermittent episodes of HTN with his confusion. VS controlled today with HR 65 and BP 113/54 to 125/66. (9) Hypertension associated with type 2 diabetes mellitus: Code(s): E11.59 - Type 2 diabetes mellitus with other circulatory complications; I15.2 - Hypertension secondary to endocrine disorders Status: Acute Assessment an
[2021-09-10 12:17] LABS: Glucose Point of Care 332 mg/dl (65-105)
[2021-09-10 17:11] LABS: Glucose Point of Care 151 mg/dl (65-105)
[2021-09-10] MEDS: POTASSIUM CHLORIDE 10 MEQ TABLET.ER PO (17:17)
[2021-09-10] MEDS: metFORMIN HCL 500 MG TABLET PO (17:17)
[2021-09-10 21:24] LABS: Glucose Point of Care 261 mg/dl (65-105)
[2021-09-11] VITALS (9 sets, daily range): BP systolic 143–159; BP diastolic 62–93; PULSE 59–76; RESP 18; TEMP 35.8–37.2; O2SAT 100
[2021-09-11 06:21] LABS: Glucose Point of Care 141 mg/dl (65-105)
[2021-09-11 06:55] LABS: Hematocrit 27.9 % (42.0-52.0); Hemoglobin 9.6 g/dL (14.0-18.0); Mean Corpuscular HGB Conc 34.4 g/dl (32-36); Mean Corpuscular Hemoglobin 31.2 pg (26-34); Mean Corpuscular Volume 90.6 fl (80-100); Mean Platelet Volume 9.5 fl (7.4-10.4); Platelet Count Result 343 k/mm3 (150-375); Red Blood Count 3.08 M/mm3 (4.6-6.20); Red Cell Distribution Width 13.2 % (11.5-14.5); White Blood Count 8.8 K/mm3 (4.5-10.0)
[2021-09-11 07:05] LABS: Anion Gap 7 mmol/L (8-16); Blood Urea Nitrogen 12 mg/dL (9-20); Calcium 9.3 mg/dL (8.4-10.2); Carbon Dioxide 27 mmol/L (22-30); Chloride 100 mmol/L (98-107); Estimated CRCL calculation 57 ml/min; Estimated Glomerular Filt Rate > 60; Glucose 154 mg/dL (65-110); Magnesium 1.5 mg/dL (1.6-2.3); Potassium 3.8 mmol/L (3.4-5.0); Sodium 134 mmol/L (137-145)
[2021-09-11 07:13] LABS: NT Pro B Type Natriuretic Pept 140 pg/mL (5-100)
[2021-09-11 07:58] LABS: Glucose Point of Care 153 mg/dl (65-105)
[2021-09-11] MEDS: amLODIPine BESYLATE 5 MG TABLET 10 MG PO (08:14)
[2021-09-11] MEDS: TAMSULOSIN HCL 0.4 MG CAPSULE PO (08:14)
[2021-09-11] MEDS: ATORVASTATIN 20 MG TABLET PO (08:14)
[2021-09-11] MEDS: POTASSIUM CHLORIDE 10 MEQ TABLET.ER PO ×2 (08:14→16:39)
[2021-09-11] MEDS: APIXABAN 5 MG TABLET PO ×2 (08:14→20:56)
[2021-09-11] MEDS: DOCUSATE SODIUM 100 MG CAPSULE PO (08:14)
[2021-09-11] MEDS: MAGNESIUM OXIDE 400 MG TABLET PO ×2 (08:14→16:39)
[2021-09-11] MEDS: metFORMIN HCL 500 MG TABLET PO ×2 (08:14→16:39)
[2021-09-11] MEDS: levETIRAcetam 500 MG TABLET PO ×2 (08:15→20:58)
[2021-09-11] MEDS: METOPROLOL TARTRATE 25 MG TABLET 75 MG PO ×2 (08:15→20:57)
[2021-09-11] MEDS: INSULIN GLARGINE (*BKC) 100 UNITS/ML 25 UNITS SUB-Q (08:17)
--- NOTE | 2021-09-11 11:06 | WPDNEUROPN ---
Progress Note: A&P Additional Plan 1. No Parkinson's disease at this particular time to be treated 2. 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 in addition to nonspecific white matter disease, normal carotid studies on ultrasound, normal routine lab except low hemoglobin and hyperglycemia and abnormal UA Review of Systems Review of Systems: All systems reviewed & are unremarkable except as noted in HPI and below Exam Const: General: cooperative, comfortable, no acute distress, alert and awake Nutritional Appearance: average body habitus Orientation/consciousness: oriented to person and oriented to place HENMT: Head: normal to inspection and normocephalic Ears: hearing grossly normal bilaterally General nose exam: Normal external nose present Face and sinus: normal facial exam Mouth: Yes Normal oral and palatal mucosa present Eyes: General: appearance normal, both eyes and all related structures Visual Curran: normal visual curran by confrontation Alignment and Position: alignment normal Periorbital: periorbital findings normal Eyelids: eyelids normal Conjunctivae: conjunctivae normal Sclera: sclerae normal Cornea: corneas normal Pupils: Equal, round and reactive pupils present EOM: EOMs intact bilaterally Neck: Neck: normal visual inspection, full ROM and no lymphadenopathy Resp: Effort & Inspection: normal respiratory effort and able to speak in complete sentences Auscultation: clear to auscultation bilaterally Cardio: Rate: regular rate Rhythm: regular rhythm Neuro: General: oriented to person, oriented to place and oriented to time Cranial nerves: Yes CN's II-XII intact bilaterally Cognition (Neuro): normal cognition Speech: normal speech Gait exam (Neuro): Unable to assess gait Motor exam (neuro): No tremor noted, Normal motor muscle tone present throughout and Motor abnormalities not present Sensory Exam: Sensory deficit (Neuro) Deep tendon reflexes (DTR's): Right triceps reflex intensity grade: 1+, Left triceps reflex intensity grade: 1+, Rt Biceps (C5, C6): 1+, Left biceps reflex intensity grade: 1+, Right brachioradialis reflex intensity grade: 1+, Left brachioradialis reflex intensity grade: 1+, Right patellar reflex intensity grade: 1+, Left patellar reflex intensity grade: 1+, Right ankle reflex intensity grade: 1+ and Left ankle reflex intensity grade: 1+ Plantar Reflex Responses: downgoing: bilateral Coordination: [id number] test normal Psych: Mental Status: mental status grossly normal Speech and movement: Normal speech and movement present Affect: normal affect Attitude: cooperative Thought process: Normal thought process present Thought content: Yes Normal thought content present Insight: Fair insight present (Psych) Judgement: Fair judgement present (Psych) Objective Data Vital Signs Vital Signs: Vital Signs - 24 hr 09/10/21 12:00 09/10/21 14:00 09/10/21 16:00 Temperature 35.8 C L Pulse Rate 58 L 62 66 Respiratory Rate 16 Blood Pressure 114/62 Pulse Oximetry 100 09/10/21 22:00 09/11/21 06:00 09/11/21 08:15 Temperature 36.7 C 36.0 C L Pulse Rate 63 72 76 Respiratory Rate 16 18 Blood Pressure 111/55 L 152/63 H Pulse Oximetry 100 100 Intake/Output Intake/Output: Intake & Output 09/08/21 09/09/21 09/10/21 09/11/21 23:59 23:59 23:59 23:59 Intake Total 3200 1090 970 570 Output Total 1999 1050 1900 300 Balance 1200 40 -930 270 Meds/Results Medications: Active Medications Generic Name Dose Route Start Last Admin Trade Name Shahriarq PRN Reason Stop Dose Admin Amlodipine Besylate 10 mg 09/09/21 09:00 09/11/21 08:14 Amlodipine Besylate 5 Mg Tablet PO 10 mg DAILY RICARDO Administration Apixaban 5 mg
[2021-09-11] MEDS: MAGNESIUM SULF 2 GM/WATER 50ML 2 GM/50 ML BAG IVPB (11:21)
[2021-09-11 11:29] LABS: Glucose Point of Care 322 mg/dl (65-105)
[2021-09-11] MEDS: INSULIN ASPART (*BKC) 100 UNITS/ML SUB-Q ×2 (11:33→16:40)
[2021-09-11 16:29] LABS: Glucose Point of Care 212 mg/dl (65-105)
--- NOTE | 2021-09-11 16:39 | P.PNIM_ITS ---
Progress Note: A&P Assessment and Plan (1) New onset seizure: Code(s): R56.9 - Unspecified convulsions Status: Acute Assessment and Plan: Patient had an episode of suspected seizure in which she was found unresponsive and had convulsions lasting for 1-2 minutes, with confusion following the episode. * He has been seen in consultation by Neurology. Appreciate recommendations. * He has been started on Keppra which is being continued. 500 mg b.i.d. * Echo reviewed with normal EF and grade 1 diastolic dysfunction, no significant valvular disease * MRI of the brain showed old infarct with no acute findings * He had a bedside swallow study done with no recommendations for modifications * He will need outpatient neurology follow-up (2) Paroxysmal atrial fibrillation with rapid ventricular response: Code(s): I48.0 - Paroxysmal atrial fibrillation Status: Acute Assessment and Plan: Noted to have episode of rapid ventricular response with heart rate in the 170s on 09/09/2021. * Appreciate cardiology consultation * Chads2-Vasc score is 6. Cardiology recommendations for chronic anticoagulation for stroke prophylaxis, but awaiting Neurology clearance. He has been started on Eliquis 09/09/2021. Will need care coordination pricing prior to discharge and will need to discuss with PT/OT his fall risk prior to discharge * He is in sinus rhythm on telemetry at this time. Rate is controlled * Continue metoprolol 75 mg b.i.d. (3) Anemia: Code(s): D64.9 - Anemia, unspecified Status: Acute Assessment and Plan: Hemoglobin and hematocrit remaining stable. Vital signs are stable there is no evidence of blood loss. * Continue to monitor H&H (4) Hypertension: Code(s): I10 - Essential (primary) hypertension Status: Chronic Assessment and Plan: Blood pressures have been slightly elevated, though it is noted he has been off of his antihypertensives as he was NPO. Seems to be slowly improving. Last BP 159/93. * Continue metoprolol * Resume lisinopril * Monitor blood pressure trends (5) DM2 (diabetes mellitus, type 2): Code(s): E11.9 - Type 2 diabetes mellitus without complications Status: Chronic Assessment and Plan: A1c is 5.7. Blood sugars are elevated above target this admission. * Continue Accu-Cheks, sliding scale insulin, and hypoglycemic protocol * Continue Lantus 25 units daily * Metformin 500 mg b.i.d. has been resumed (6) BPH (benign prostatic hyperplasia): Code(s): N40.0 - Benign prostatic hyperplasia without lower urinary tract symptoms Status: Chronic Assessment and Plan: Haas catheter initiated on presentation * Proceed with voiding trial today * Continue tamsulosin * Monitor intake and output; bladder scan as needed to ensure no retention (7) History of CVA (cerebrovascular accident): Code(s): Z86.73 - Personal history of transient ischemic attack (TIA), and cerebral infarction without residual deficits Status: Acute Assessment and Plan: Head CT performed for evaluation following new onset seizures showed old infarcts in the right caudate nucleus, azeem, and left parietal lobe, also evident on brain MRI. * He has been seen in consultation by Neurology * Will initiate aspirin 81 mg daily per Neurology recommendations * Continue with tight glycemic control and BP control, lifestyle modifications (8) Hypomagnesemia: Code(s): E83.42 - Hypomagnesemia Status: Acute
--- NOTE | 2021-09-11 16:39 | PM.IMPN ---
Progress Note: A&P Assessment and Plan (1) New onset seizure: Code(s): R56.9 - Unspecified convulsions Status: Acute Assessment and Plan: Patient had an episode of suspected seizure in which she was found unresponsive and had convulsions lasting for 1-2 minutes, with confusion following the episode. He has been seen in consultation by Neurology. Appreciate recommendations. He has been started on Keppra which is being continued. 500 mg b.i.d. Echo reviewed with normal EF and grade 1 diastolic dysfunction, no significant valvular disease MRI of the brain showed old infarct with no acute findings He had a bedside swallow study done with no recommendations for modifications He will need outpatient neurology follow-up (2) Paroxysmal atrial fibrillation with rapid ventricular response: Code(s): I48.0 - Paroxysmal atrial fibrillation Status: Acute Assessment and Plan: Noted to have episode of rapid ventricular response with heart rate in the 170s on 09/09/2021. Appreciate cardiology consultation Chads2-Vasc score is 6. Cardiology recommendations for chronic anticoagulation for stroke prophylaxis, but awaiting Neurology clearance. He has been started on Eliquis 09/09/2021. Will need care coordination pricing prior to discharge and will need to discuss with PT/OT his fall risk prior to discharge He is in sinus rhythm on telemetry at this time. Rate is controlled Continue metoprolol 75 mg b.i.d. (3) Anemia: Code(s): D64.9 - Anemia, unspecified Status: Acute Assessment and Plan: Hemoglobin and hematocrit remaining stable. Vital signs are stable there is no evidence of blood loss. Continue to monitor H&H (4) Hypertension: Code(s): I10 - Essential (primary) hypertension Status: Chronic Assessment and Plan: Blood pressures have been slightly elevated, though it is noted he has been off of his antihypertensives as he was NPO. Seems to be slowly improving. Last BP 159/93. Continue metoprolol Resume lisinopril Monitor blood pressure trends (5) DM2 (diabetes mellitus, type 2): Code(s): E11.9 - Type 2 diabetes mellitus without complications Status: Chronic Assessment and Plan: A1c is 5.7. Blood sugars are elevated above target this admission. Continue Accu-Cheks, sliding scale insulin, and hypoglycemic protocol Continue Lantus 25 units daily Metformin 500 mg b.i.d. has been resumed (6) BPH (benign prostatic hyperplasia): Code(s): N40.0 - Benign prostatic hyperplasia without lower urinary tract symptoms Status: Chronic Assessment and Plan: Haas catheter initiated on presentation Proceed with voiding trial today Continue tamsulosin Monitor intake and output; bladder scan as needed to ensure no retention (7) History of CVA (cerebrovascular accident): Code(s): Z86.73 - Personal history of transient ischemic attack (TIA), and cerebral infarction without residual deficits Status: Acute Assessment and Plan: Head CT performed for evaluation following new onset seizures showed old infarcts in the right caudate nucleus, azeem, and left parietal lobe, also evident on brain MRI. He has been seen in consultation by Neurology Will initiate aspirin 81 mg daily per Neurology recommendations Continue with tight glycemic control and BP control, lifestyle modifications (8) Hypomagnesemia: Code(s): E83.42 - Hypomagnesemia Status: Acute Assessment and Plan: Magnesium 1.5 today. Administered 2 g IV magnesium sulfate Repeat BMP with magnesium levels tomorrow Subjective Date/time seen: 09/11/21 16:39 Interval history: Date of service: 09/11/2021 Van womack is an 81-year-old male with a history of type 2 diabetes mellitus, hypertension, hyperlipidemia, and BPH who is seen in follow-up for new onset seizure. He reports that he is doing well t
[2021-09-11 22:14] LABS: Glucose Point of Care 149 mg/dl (65-105)
[2021-09-12 06:00] VITALS: BP 128/61; PULSE 62; RESP 18; TEMP 36.1; O2SAT 100
[2021-09-12 07:09] LABS: Hematocrit 32.7 % (42.0-52.0); Hemoglobin 10.6 g/dL (14.0-18.0); Mean Corpuscular HGB Conc 32.4 g/dl (32-36); Mean Corpuscular Hemoglobin 31.3 pg (26-34); Mean Corpuscular Volume 96.5 fl (80-100); Mean Platelet Volume 10.4 fl (7.4-10.4); Platelet Count Result 190 k/mm3 (150-375); Red Blood Count 3.39 M/mm3 (4.6-6.20); White Blood Count 7.8 K/mm3 (4.5-10.0)
[2021-09-12 07:58] LABS: Anion Gap 9 mmol/L (8-16); Blood Urea Nitrogen 11 mg/dL (9-20); Calcium 9.7 mg/dL (8.4-10.2); Carbon Dioxide 25 mmol/L (22-30); Chloride 101 mmol/L (98-107); Estimated CRCL calculation 63 ml/min; Estimated Glomerular Filt Rate > 60; Glucose 105 mg/dL (65-110); Potassium 4.4 mmol/L (3.4-5.0); Sodium 135 mmol/L (137-145)
[2021-09-12 08:00] VITALS: O2SAT 100
[2021-09-12 08:03] LABS: Glucose Point of Care 100 mg/dl (65-105)
[2021-09-12 08:56] VITALS: PULSE 62
[2021-09-12] MEDS: ATORVASTATIN 20 MG TABLET PO (08:56)
[2021-09-12] MEDS: lisinopriL 20 MG TABLET 40 MG PO (08:56)
[2021-09-12] MEDS: amLODIPine BESYLATE 5 MG TABLET 10 MG PO (08:56)
[2021-09-12] MEDS: TAMSULOSIN HCL 0.4 MG CAPSULE PO (08:56)
[2021-09-12] MEDS: levETIRAcetam 500 MG TABLET PO (08:56)
[2021-09-12] MEDS: DOCUSATE SODIUM 100 MG CAPSULE PO (08:56)
[2021-09-12] MEDS: METOPROLOL TARTRATE 25 MG TABLET 75 MG PO (08:56)
[2021-09-12] MEDS: metFORMIN HCL 500 MG TABLET PO ×2 (08:56→16:34)
[2021-09-12] MEDS: APIXABAN 5 MG TABLET PO (08:57)
[2021-09-12] MEDS: POTASSIUM CHLORIDE 10 MEQ TABLET.ER PO ×2 (08:57→16:34)
[2021-09-12] MEDS: MAGNESIUM OXIDE 400 MG TABLET PO ×2 (08:57→16:34)
[2021-09-12] MEDS: INSULIN GLARGINE (*BKC) 100 UNITS/ML 25 UNITS SUB-Q (08:58)
[2021-09-12] MEDS: ASPIRIN 81 MG ENTERIC TABLET PO (08:58)
[2021-09-12 09:38] LABS: Magnesium 1.6 mg/dL (1.6-2.3)
--- NOTE | 2021-09-12 10:32 | WPDNEUROLOGY ---
Neurology EEG Report General Information Date of Study: 09/18/21 TEST eeg DIAGNOSIS Seizures CONDITION OF RECORDING drowsy and sleep EEG NUMBER [id number] CLINICAL HISTORY patient had an episode of unresponsiveness with some shaking yesterday EEG DESCRIPTION background rhythm consists of moderate amount of fairly well organized low to medium voltage 5 to 7 hertz per 2nd theta admixed with low-voltage 15 to 18 hertz per 2nd beta. Bilateral symmetrical sleep activity seen during sleep admixed with multiple movements artifacts hyperventilation not done. Photic stimulation not done. Non paroxysmal. Nonfocal. Nonlateralizing. IMPRESSION No significant abnormalities noted but the tracing has been mainly done during drowsiness and sleep clinical correlation recommended.
[2021-09-12 11:36] LABS: Glucose Point of Care 190 mg/dl (65-105)
[2021-09-12 14:00] VITALS: BP 124/60; PULSE 64; RESP 18; TEMP 36.2; O2SAT 100
--- NOTE | 2021-09-12 14:16 | PC.NURSE ---
This nurse was asked at 1230 to bladder scan pt by Magui Luo to see if pt was holding urine. Nurse was instructed to call Magui with results. Nurse bladder scanned pt at 1313 and he was found to have over 924 mL. Nurse informed Magui of results at 1325. Magui instructed nurse to see if pt can try to urinate one more time, if not, to place an indwelling uninary catheter. Pt then worked with Occupational therapy. OT was informed to let nurse know if he urinated. Pt worked with therapy for 30 mins and was unable to urinate. Pt will now have indwelling catheter placed. Will chart when arcos is placed.
--- NOTE | 2021-09-12 14:56 | PC.NURSE ---
urinary catheter placed. pt tolorated well. documented in urinary assessment
--- NOTE | 2021-09-12 15:21 | PM.PNCARD ---
Progress Note: A&P Assessment and Plan (1) Paroxysmal atrial fibrillation with rapid ventricular response: Code(s): I48.0 - Paroxysmal atrial fibrillation Status: Acute Assessment and Plan: paroxysmal atrial fibrillation with rapid ventricular response possible intermittent atrial flutter with RVR as well. Currently sinus rhythm on telemetry. Patient relatively asymptomatic. CHADS2 Vasc score 6. Patient at high risk for recurrent stroke. Systemic anticoagulation would be advised for stroke risk reduction, however, given patient's presentation with concern for new onset seizures would prefer clearance from Neurology in this regard. Candidacy somewhat questionable, fall risk needs to be assessed. PT/OT. Balance of stroke prevention and bleeding risk. Eliquis 5 mg b.i.d. if able to obtain through insurance and if okay with Neurology. Continue metoprolol. patient indicated he wished to follow up with me as an outpatient. Will set that up as appropriate. Continue telemetry. He is not in decompensated heart failure. (2) Hypertension associated with type 2 diabetes mellitus: Code(s): E11.59 - Type 2 diabetes mellitus with other circulatory complications; I15.2 - Hypertension secondary to endocrine disorders Status: Acute Assessment and Plan: Stable albeit hypertensive as he had been off antihypertensives as he was NPO. He has now passed a swallow evaluation oral medications have been resumed. Resume lisinopril. (3) Anemia: Code(s): D64.9 - Anemia, unspecified Status: Acute Assessment and Plan: Fairly stable, follow H&H. (4) Mixed hyperlipidemia due to type 2 diabetes mellitus: Code(s): E11.69 - Type 2 diabetes mellitus with other specified complication; E78.2 - Mixed hyperlipidemia Status: Acute Assessment and Plan: Continue atorvastatin, goal LDL less than 70 given radiographic evidence of prior CVA. (5) History of CVA (cerebrovascular accident): Code(s): Z86.73 - Personal history of transient ischemic attack (TIA), and cerebral infarction without residual deficits Status: Acute Assessment and Plan: No acute finding, Possible he has been having intermittent asymptomatic atrial fibrillation as contribution to old left parietal lobe infarction. (6) DM2 (diabetes mellitus, type 2): Code(s): E11.9 - Type 2 diabetes mellitus without complications Status: Chronic Assessment and Plan: management per primary service. (7) New onset seizure: Code(s): R56.9 - Unspecified convulsions Status: Acute Assessment and Plan: Management per Neurology. Continue Keppra per their recommendations. Subjective Date/time seen: 09/12/21 15:21 Interval history: Van womack is an 81-year-old male with a history of type 2 diabetes mellitus, hypertension, hyperlipidemia, and BPH who is seen in follow-up for new onset seizure. He reports that he is doing well today. He offers no complaints. Denies pain, nausea, vomiting, fever, or chills. No chest pain, shortness breath, palpitations Appetite is good. He reports that he is getting around well and he took a walk this afternoon. Follow-up note 09/12/2021: He denies any chest pain, shortness of breath. Still in sinus rhythm Review of Systems Review of Systems: All systems reviewed & are unremarkable except as noted in HPI and below Constitutional: Constitutional: Reports as per HPI, Reports no additional constitutional complaints and Reports fatigue Eyes: Eyes: Reports as per HPI and Reports no additional eye complaints ENT: Reports system reviewed and no additional complaints, except as documented and Reports as per HPI Cardiovascular: Cardiovascular: Reports as per HPI, Reports no additional cardiovascular complaints, Denies chest pain, Denies diaphoresis, Denies leg edema, Denies lightheadedness, Denies palpitations, Denies dyspnea and Denies dyspnea
--- NOTE | 2021-09-12 16:03 | PM.DS ---
DS: Admitting Diagnosis Discharge Date 09/12/2021 Admitting Diagnosis Seizure DS: Discharge Diagnosis Discharge Diagnosis (1) New onset seizure: Code(s): R56.9 - Unspecified convulsions Status: Acute Assessment and Plan: Patient had an episode of suspected seizure in which he was found unresponsive and had convulsions lasting for 1-2 minutes, with confusion following the episode. He was seen in consultation by Neurology. EEG performed on 09/12/2021 showed no significant abnormalities. Echo reviewed with normal EF and grade 1 diastolic dysfunction, no significant valvular disease. MRI of the brain showed old infarct with no acute findings. He had a bedside swallow study done with no recommendations for modifications. He was started on Keppra which he will continue 500 mg b.i.d.. He will follow-up with neurology as an outpatient (2) Paroxysmal atrial fibrillation with rapid ventricular response: Code(s): I48.0 - Paroxysmal atrial fibrillation Status: Acute Assessment and Plan: Noted to have episode of rapid ventricular response with heart rate in the 170s on 09/09/2021. He was seen in consultation by Cardiology. He had improvement with increase in his metoprolol to 75 mg BID. Chads2-Vasc score is 6. Cardiology recommended for chronic anticoagulation for stroke prophylaxis. He was started on Eliquis. Discussed with neurology as well as PT/OT to evaluate his fall risk and all in agreement to proceed with anticoagulation. Discussed with patients daughter/POA risks of stroke vs risk of bleed, she verbalized understanding and agreed to proceed. On my evaluation he was in sinus rhythm. He will follow up with cardiology as an outpatient and was referred to Dr. Dugan. (3) Urinary retention: Code(s): R33.9 - Retention of urine, unspecified Status: Acute Assessment and Plan: Arcos catheter initiated on presentation. Patient failed a voiding trial on 09/12/21 and Arcos was restarted. He will discharge with arcos and follow up with urology in 1 week for voiding trial and urodynamics. Patients daughter called the office and has an appointment arranged. Educated on Arcos catheter care and hygiene. Continue tamsulosin. (4) Anemia: Code(s): D64.9 - Anemia, unspecified Status: Acute Assessment and Plan: Hemoglobin and hematocrit remained stable. Vital signs stable with no evidence of blood loss. (5) Hypertension: Code(s): I10 - Essential (primary) hypertension Status: Chronic Assessment and Plan: Blood pressures were slightly elevated, though it is noted he had been off of his antihypertensives as he was initially NPO. Blood pressures improved with resuming his medications. Continue lisinopril and metoprolol (6) DM2 (diabetes mellitus, type 2): Code(s): E11.9 - Type 2 diabetes mellitus without complications Status: Chronic Assessment and Plan: A1c is 5.7. Blood sugars were elevated above target during admission but did improve. Managed with accuchecks, sliding scale insulin, and hypoglycemic protocol. Continue lantus 25 units daily and metformin 500 mg BID. (7) History of CVA (cerebrovascular accident): Code(s): Z86.73 - Personal history of transient ischemic attack (TIA), and cerebral infarction without residual deficits Status: Acute Assessment and Plan: Head CT performed for evaluation following new onset seizures showed old infarcts in the right caudate nucleus, azeem, and left parietal lobe, also evident on brain MRI. Initiated on aspirin on admission, however upon discussion with patients care team, felt that with initiation of Eliquis, addition of aspirin would increase his bleed risk given his fall risk and risk outweighed benefit. Old stroke most likely embolic in origin. Continue eliquis. (8) Hypomagnesemia: Code(s): E83.42 - Hypomagnesemia Status: Acute Assessment and P
[2021-09-12 17:39] LABS: Glucose Point of Care 185 mg/dl (65-105)
== END 2021-09-12 18:00 | disposition home health service (06) | DRG 310 ==
LOC: ANHED 19:11 → ANH3MEDSUR 20:58
PROVIDERS: Emergency Medicine; Nurse Practitioner; Admitting Provider Internal Medicine; Emergency Provider Emergency Medicine; PCP Internal Medicine; Visit Provider Physician Assistant
DX: I48.0 Paroxysmal atrial fibrillation (principal); R56.9 Unspecified convulsions; F03.90 Unspecified dementia, unspecified severity, without behavioral disturbance, psychotic disturbance, mood disturbance, and anxiety; E11.65 Type 2 diabetes mellitus with hyperglycemia; E11.69 Type 2 diabetes mellitus with other specified complication; E78.2 Mixed hyperlipidemia; E11.59 Type 2 diabetes mellitus with other circulatory complications; I15.2 Hypertension secondary to endocrine disorders; R82.90 Unspecified abnormal findings in urine; N40.1 Benign prostatic hyperplasia with lower urinary tract symptoms; R33.8 Other retention of urine; D64.9 Anemia, unspecified; E83.42 Hypomagnesemia; Z79.4 Long term (current) use of insulin; Z79.84 Long term (current) use of oral hypoglycemic drugs; Z79.899 Other long term (current) drug therapy; Z87.891 Personal history of nicotine dependence; Z86.73 Personal history of transient ischemic attack (TIA), and cerebral infarction without residual deficits
CPT/HCPCS: 36415; 70450; 70553; 71045; 80048; 80053; 81001; 82948; 83036; 83605; 83615; 83735; 83880; 84100; 84443; 84484; 85025; 85027; 85610; 85730; 92610; 93005; 93306; 93880; 95816; 96360; 96361; 96365; 96375; 96376; 97110; 97116; 97162; 97165; 97530; 97535; 99285; A9270; A9577; G0378; J1815; J1953; J3475; J7030; J7120